=== PATIENT | male | born 1960 | race Caucasian/White ===

== ENCOUNTER 2019-02-05 16:32 | Emergency (ER) | payer SELFPAY ==
[2019-02-05] MEDS ORDERED: Sodium Chloride 0.9% 10 ML Syringe FLUSH PRN (16:45)
[2019-02-05] MEDS ORDERED: Heparin Sodium/D5W 25,000 UNITS/500 ML BAG IV SCH (17:15)
[2019-02-05] MEDS ORDERED: Heparin Sodium 5,000 Units/ML Vial IVPUSH ONE (17:15)
--- NOTE | 2019-02-05 17:28 | EDM.PDOC ---
ED HPI GENERAL MEDICAL PROBLEM - General Chief Complaint: Chest Pain Stated Complaint: CHEST PAINS Time Seen by Provider: 02/05/19 16:38 Source of Information: Reports: Patient, Provider History Limitations: Reports: No Limitations - History of Present Illness INITIAL COMMENTS - FREE TEXT/NARRATIVE: The patient presents by private vehicle from [facility] for chest pain. The patient has been having intermittent chest pain for about a week. He also has been having indigestion. The pain comes and goes and goes down his arms at times. He says that exertion does not affect it much. He has no shortness of breath. He has no history of VA. He does smoke. He has no history of hypertension, hypercholesterolemia or diabetes. He went to see his provider and they did an EKG. There was a nonspecific IVCD with LAS and Q waves in the inferior and anterior leads. He was given 4 baby aspirin. He did not want an ambulance. When he was on the way, the called with troponin results from I stat and it was elevated at 2.82. Onset: Gradual Duration: Week(s): (1) Location: Reports: Chest Quality: Reports: Pressure Severity: Moderate Improves with: Reports: None Worsens with: Reports: None Associated Symptoms: Reports: Chest Pain. 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 - Related Data Allergies Allergy/AdvReac Type Severity Reaction Status Date / Time omeprazole [From Prilosec] Allergy Hives Verified 02/05/19 16:39 Past Medical History Cardiovascular History: Reports: Hypertension Social & Family History - Tobacco Use Smoking Status *Q: Current Every Day Smoker Years of Tobacco use: 40 Packs/Tins Daily: 1.5 - Recreational Drug Use Recreational Drug Use: No ED ROS GENERAL - Review of Systems Review Of Systems: See Below Constitutional: Reports: No Symptoms HEENT: Reports: No Symptoms Respiratory: Reports: No Symptoms Cardiovascular: Reports: Chest Pain Endocrine: Reports: No Symptoms GI/Abdominal: Reports: No Symptoms : Reports: No Symptoms ED EXAM, GENERAL - Physical Exam Exam: See Below Exam Limited By: No Limitations General Appearance: Alert, No Apparent Distress Ears: Normal External Exam Nose: Normal Inspection Head: Atraumatic, Normocephalic Neck: Normal Inspection Respiratory/Chest: No Respiratory Distress, Lungs Clear, Normal Breath Sounds Cardiovascular: Regular Rate, Rhythm, No Edema, No Murmur GI/Abdominal: Soft, Non-Tender, No Organomegaly, No Mass Back Exam: Normal Inspection Extremities: Normal Inspection EKG INTERPRETATION EKG Date: 02/05/19 Time: 16:38 Rhythm: NSR Rate (Beats/Min): 84 Mark Center: Normal P-Wave: Present QRS: Wide ST-T: Elevated (slightly in anterior leads) QT: Normal EKG Interpretation Comments: PVCs present. Q waves in the inferior and anterior leads with IVCD with slight ST elevation in the anterior leads Course - Vital Signs Last Recorded V/S: Last Vital Signs Temp 98.7 F 02/05/19 16:37 Pulse 86 02/05/19 16:37 Resp 16 02/05/19 16:37 BP 142/105 H 02/05/19 16:37 Pulse Ox 99 02/05/19 16:57 - Orders/Labs/Meds Orders: Active Orders 24 hr Category Date Time Status Cardiac Monitoring [RC] . DIRECTED Care 02/05/19 16:45 Active EKG Documentation Completion [RC] ASDIRECTED Care 02/05/19 16:42 Active Oxygen Therapy [RC] PRN Care 02/05/19 16:45 Active Peripheral IV Care [RC] . DIRECTED Care 02/05/19 16:46 Active Chest 1V Frontal [CR] Stat Exams 02/05/19 16:46 Taken CBC W/O DIFF,HEMOGRAM [HEME] MOTH@0700 Lab 02/08/19 07:00 Ordered CBC W/O DIFF,HEMOGRAM [HEME] MOTH@0700 Lab 02/12/19 07:00 Ordered CBC W/O DIFF,HEMOGRAM [HEME] MOTH@0700 Lab 02/15/19 07:00 Ordered CBC W/O DIFF,HEMOGRAM [HEME] MOTH@0700 Lab 02/19/19 07:00 Ordered CBC W/O DIFF,HEMOGRAM [HEME] MOTH@0700 Lab 02/22/19 07:00 Ordered CBC W/O DIFF,HEMOGRAM [HEME] MOTH@0700 Lab 02/26/19 07:00 Ordered CBC WITH AUTO DIFF [HEME] Stat Lab 02/05/19 16:58 Ordered Heparin Sodium/D5W [Heparin 25,000 Units in D5W 500 ML] Med 02/05/19 17:15 Active 25,000 units in 500 ml IV TITRATE Sodium Chloride 0.9% [Saline Flush] Med 02/05/19 16:45 Active 10 ml FLUSH ASDIRECTED PRN Peripheral IV Insertion Adult [OM.PC] Stat Oth 02/05/19 16:45 Ordered EKG 12 Lead [EK] Stat Ther 02/05/19 16:42 Ordered Medication Orders Heparin Sodium/Dextrose (Heparin 25,000 Units In D5w 500 Ml) 25,000 units in 500 mls @ 21.5 mls/hr IV TITRATE DANNIELLE; Protocol Last Admin: 02/05/19 17:24 Dose: 10 units/kg/hr, 21.5 mls/hr Sodium Chloride (Saline Flush) 10 ml FLUSH ASDIRECTED PRN PRN Reason: Keep Vein Open Last Admin: 02/05/19 17:01 Dose: 10 ml Labs: Laboratory Tests 02/05/19 02/05/19 Range/Units 17:00 17:00 Sodium 138 (136-145) mEq/L Potassium 4.1 (3.5-5.1) mEq/L Chloride 100 (98-107) mEq/L Carbon Dioxide 29 (21-32) mEq/L Anion Gap 13.1 (5-15) BUN 23 H (7-18) mg/dL Creatinine 1.2 (0.7-1.3) mg/dL Est Cr Clr Drug Dosing 80.20 mL/min Estimated GFR (MDRD) > 60 (>60) mL/min BUN/Creatinine Ratio 19.2 H (14-18) Glucose 97 (74-106) mg/dL Calcium 9.1 (8.5-10.1) mg/dL Total Bilirubin 0.4 (0.2-1.0) mg/dL AST 19 (15-37) U/L ALT 39 (16-63) U/L Alkaline Phosphatase 70 (46-116) U/L Troponin I 4.606 H* (0.00-0.056) ng/mL Total Protein 7.5 (6.4-8.2) g/dl Albumin 3.7 (3.4-5.0) g/dl Globulin 3.8 gm/dL Albumin/Globulin Ratio 1.0 (1-2) Meds: Medications Generic Name Dose Route Start Last Admin Trade Name Freq PRN Reason Stop Dose Admin Heparin Sodium/Dextrose 25,000 units in 500 mls @ 21.5 mls/hr 02/05/19 17:15 02/05/19 17:24 Heparin 25,000 Units In D5w 500 Ml IV 10 units/kg/hr TITRATE DANNIELLE 21.5 mls/hr Administration Protocol 10 UNITS/KG/HR Sodium Chloride 10 ml 02/05/19 16:45 02/05/19 17:01 Saline Flush FLUSH 10 ml ASDIRECTED PRN Administration Keep Vein Open Discontinued Medications Generic Name Dose Route Start Last Admin Trade Name Aron PRN Reason Stop Dose Admin Heparin Sodium (Porcine) 5,000 units 02/05/19 17:15 02/05/19 17:24 Heparin Sodium IVPUSH 02/05/19 17:16 5,000 units ONETIME ONE Administration - Re-Assessments/Exams Free Text/Narrative Re-Assessment/Exam: 02/05/19 17:37 I ordered an IV saline lock, EKG, CXR, heparin bolus and drip. His EKG shows a NSR with interventricular conduction delay with left access deviation. There is Q waves in the inferior and anterior leads with slight ST elevation at V2 and V3. His CXR looks good. 02/05/19 17:43 His troponin came back elevated here at 4.606. I ordered a heparin bolus of 5, 000 untis and a drip at 1,000 units per hour. He is having a nonSTEMI. He did get aspirin at the clinic and he is pain free on arrival. I called [facility] in [place] and talked to Dr Sage and she agreed to the admission. Departure - Departure Time of Disposition: 17:50 Disposition: DC/Tfer to Acute Hospital 02 Reason for Transfer *Q: Other Condition: Serious Clinical Impression: Non-STEMI (non-ST elevated myocardial infarction) Referrals: Eduardo Pal, KATE [Primary Care Provider] - Forms: ED Department Discharge - My Orders Last 24 Hours: My Active Orders 02/05/19 16:42 EKG Documentation Completion [RC] ASDIRECTED EKG 12 Lead [EK] Stat 02/05/19 16:45 Cardiac Monitoring [RC] . DIRECTED Oxygen Therapy [RC] PRN Sodium Chloride 0.9% [Saline Flush] 10 ml FLUSH ASDIRECTED PRN Peripheral IV Insertion Adult [OM.PC] Stat 02/05/19 16:46 Peripheral IV Care [RC] . DIRECTED Chest 1V Frontal [CR] Stat 02/05/19 16:58 CBC WITH AUTO DIFF [HEME] Stat 02/05/19 17:15 Heparin Sodium/D5W [Heparin 25,000 Units in D5W 500 ML] 25,000 units in 500 ml IV TITRATE 02/08/19 07:00 CBC W/O DIFF,HEMOGRAM [HEME] MOTH@69902/12/19 07:00 CBC W/O DIFF,HEMOGRAM [HEME] MOTH@69902/15/19 07:00 CBC W/O DIFF,HEMOGRAM [HEME] MOTH@69902/19/19 07:00 CBC W/O DIFF,HEMOGRAM [HEME] MOTH@69902/22/19 07:00 CBC W/O DIFF,HEMOGRAM [HEME] MOTH@69902/26/19 07:00 CBC W/O DIFF,HEMOGRAM [HEME] MOTH@0700 - Assessment/Plan Last 24 Hours: My Active Orders 02/05/19 16:42 EKG Documentation Completion [RC] ASDIRECTED EKG 12 Lead [EK] Stat 02/05/19 16:45 Cardiac Monitoring [RC] . DIRECTED Oxygen Therapy [RC] PRN Sodium Chloride 0.9% [Saline Flush] 10 ml FLUSH ASDIRECTED PRN Peripheral IV Insertion Adult [OM.PC] Stat 02/05/19 16:46 Peripheral IV Care [RC] . DIRECTED Chest 1V Frontal [CR] Stat 02/05/19 16:58 CBC WITH AUTO DIFF [HEME] Stat 02/05/19 17:15 Heparin Sodium/D5W [Heparin 25,000 Units in D5W 500 ML] 25,000 units in 500 ml IV TITRATE 02/08/19 07:00 CBC W/O DIFF,HEMOGRAM [HEME] MOTH@69902/12/19 07:00 CBC W/O DIFF,HEMOGRAM [HEME] MOTH@69902/15/19 07:00 CBC W/O DIFF,HEMOGRAM [HEME] MOTH@69902/19/19 07:00 CBC W/O DIFF,HEMOGRAM [HEME] MOTH@69902/22/19 07:00 CBC W/O DIFF,HEMOGRAM [HEME] MOTH@69902/26/19 07:00 CBC W/O DIFF,HEMOGRAM [HEME] MOTH@0700
--- NOTE | 2019-02-06 06:58 | CR ---
Chest: Portable view of the chest was obtained. Comparison: No prior chest x-ray. Heart size and mediastinum are normal. Lungs are clear. Bony structures are grossly intact. Impression: 1. Nothing acute is seen on portable chest x-ray. Diagnostic code #1
== END 2019-02-05 18:30 ==
LOC: JD.ED 16:32
DX: I21.4 Non-ST elevation (NSTEMI) myocardial infarction (principal); F17.210 Nicotine dependence, cigarettes, uncomplicated; I10 Essential (primary) hypertension; Z88.8 Allergy status to other drugs, medicaments and biological substances
CPT/HCPCS: 36415; 71045; 80053; 84484; 85025; 93005; 96365; 99285; J1644; 93010; 99284